=== PATIENT | male | born 1960 | race Caucasian/White ===

== ENCOUNTER → 2018-02-14 14:20 | Outpatient (POV) | payer OTHER, SELFPAY | PROVIDERS: Visit Provider Internal Medicine | DX: Z00.00 Encounter for general adult medical examination without abnormal findings (principal) ==

== ENCOUNTER → 2018-08-29 14:50 | Outpatient (POV) | payer OTHER, SELFPAY | PROVIDERS: Visit Provider Internal Medicine | DX: Z00.00 Encounter for general adult medical examination without abnormal findings (principal) ==

== ENCOUNTER → 2019-01-16 12:46 | Outpatient (CLI) | payer OTHER, SELFPAY ==
[2019-01-16 13:50] VITALS: PULSE 87; PULSE 90
[2019-01-16 14:10] VITALS: BP 118/78; BP 125/80; PULSE 100; PULSE 87; RESP 18; RESP 24; O2SAT 92; O2SAT 96
--- NOTE | 2019-01-16 14:25 | CT_ITS ---
CT lung screening EXAM: CT LUNG LOW DOSE WO CONTRAST HISTORY: ITS.REASON: H/O NICOTINE DEPENDENCE ORDERING PHYSICIAN: Elian Begum MD PATIENT AGE: 58 years COMPARISON: 09/22/2016 TECHNIQUE: The exam was performed on a GE Light Speed [address] scanner using 2.90 mGy CTDI. A low dose helical CT CHEST was performed on a multi-detector scanner. All CT scans at the facility use one or more dose reduction, viz: automated exposure control, ma/kV adjustment per patient size (including targeted exams where dose is matched to indication, i.e. head), or iterative reconstruction technique. The LDCT was performed in a facility that meets the criteria for the screening program. Data regarding this exam was submitted to [employer] which is an approved registry. The order for this exam indicates that it came as a result of a lung cancer screening counseling shard decision-making visit that included all the elements required of such a visit including smoking cessation. The radiologist interpreting this exam meets the CMS criteria for the LDCT lung cancer screening program. The exam is reported using the Lung-RADS classification scale and reported to the ACR registry. NOTE: This study was performed for the specific purposes of lung cancer screening and is not an alternative to diagnostic chest CT. RADIATION DOSE: CTDI vol(CT dose Index-volume) = 2.90mG DLP (Dose Length Product) = 128.46 mGcm FINDINGS: There are severe centrilobular emphysematous changes with scattered areas of fibrosis and mild diffuse bronchial thickening/COPD. Stable 6 mm noncalcified nodule right middle lobe image 59 5 mm parenchymal opacity right lower lobe laterally and posteriorly image #60 2. Since the previous exam. Stable 5 mm subpleural parenchymal opacity right lower lobe laterally image 46 Stable 9 mm calcified nodule superior segment left lower lobe image #42. There is a 4.5 x 2.9 cm right adrenal mass is isodense in nature and not significant changed. IMPRESSION: 1. Lung RADS Category: 3, probably benign, recommend six-month follow-up regarding new 5 mm nodule in the right lower lobe 2. Other findings: Centrilobular emphysema, pulmonary fibrotic changes, COPD, stable right adrenal mass RECOMMENDATIONS: 6 month LDCT follow-up
== END ==
PROVIDERS: PCP Nurse Practitioner Family; Visit Provider Internal Medicine
DX: Z12.2 Encounter for screening for malignant neoplasm of respiratory organs (principal); Z87.891 Personal history of nicotine dependence; J43.9 Emphysema, unspecified; J44.9 Chronic obstructive pulmonary disease, unspecified; Z71.6 Tobacco abuse counseling
CPT/HCPCS: 94060; 94618; 94640; 94727; 94729

== ENCOUNTER → 2019-02-13 14:42 | Outpatient (POV) | payer OTHER, SELFPAY | PROVIDERS: Visit Provider Internal Medicine | DX: Z00.00 Encounter for general adult medical examination without abnormal findings (principal) ==